=== PATIENT | male | born 1970 | race American Indian/Alaskan Native ===

== ENCOUNTER 2021-06-03 20:43 | Emergency (ER) | payer OTHER ==
[2021-06-04] MEDS ORDERED: IBUPROFEN 600 MG TAB PO ONE (00:29)
[2021-06-04] MEDS ORDERED: ACETAMINOPHEN 500 MG TAB PO ONE (00:29)
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
[2021-06-04 05:06] VITALS: BP 130/60
== END 2021-06-04 05:04 | disposition home or self-care (01) ==
LOC: ED 20:43
DX: S46.911A Strain of unspecified muscle, fascia and tendon at shoulder and upper arm level, right arm, initial encounter (principal); M62.838 Other muscle spasm; V89.2XXA Person injured in unspecified motor-vehicle accident, traffic, initial encounter; Y93.89 Activity, other specified; Y92.89 Other specified places as the place of occurrence of the external cause; Y99.8 Other external cause status; I10 Essential (primary) hypertension
CPT/HCPCS: 71046; 72125; 99284